=== PATIENT | female | born 1970 | race Caucasian/White ===

== ENCOUNTER 2023-09-19 14:33 | Emergency (ER) | payer OTHER ==
[2023-09-19 16:18] LABS: Absolute Lymphocytes (CBC) 1.4 K/uL (0.7-4.9); Hematocrit 43.5 % (36.0-45.0); Lymphocytes % 10.6 % (15.3-44.8); MCV 85.6 fL (80-100); MPV 8.6 fL (7.6-11.3); Platelets 294 thou/uL (152-406); RBC Red Blood Cell Count 5.08 M/uL (3.86-4.86)
[2023-09-19 16:26] LABS: Protime INR 1.03
[2023-09-19 16:40] LABS: ALT/SGPT 24 U/L (13-56); Albumin 4.2 g/dL (3.4-5.0); Alkaline Phosphatase 73 U/L (45-117); BUN Blood Urea Nitrogen 9 mg/dL (7-18); Bicarbonate 25 mEq/L (21-32); Bilirubin Total 0.6 mg/dL (0.2-1.0); Glomerular Filtration Rate 77 ml/min (=/>90); Glucose Level 130 mg/dL (74-106); NT PRO-BNP 165 pg/mL (<125); Protein, Total 8.4 g/dL (6.4-8.2); Sodium Level 138 mEq/L (136-145); Troponin High Sensitivity 9.5 pg/mL (<58.9)
[2023-09-19 17:09] LABS: AST/SGOT 18 U/L (15-37); Bilirubin Direct < 0.1 mg/dL (0-0.2); Bilirubin Indirect, Calculated ND mg/dL (0.2-0.8); Magnesium 2.3 mg/dL (1.6-2.4); Potassium 4.1 mEq/L (3.5-5.1)
--- NOTE | 2023-09-19 17:19 | RAD REPORT ---
EXAM DESCRIPTION: Nolan Single View09/19/2023 3:51 pm CLINICAL HISTORY: Chest pain COMPARISON: none FINDINGS: The lungs appear clear of acute infiltrate. The heart is normal size IMPRESSION: No acute abnormalities displayed
[2023-09-19] MEDS ORDERED: LORazepam 2 MG/ML VIAL ONE (17:29)
--- NOTE | 2023-09-19 17:30 | ER ---
Nurse's Notes [facility] Name: Henny Hubbard Age: 53 yrs Sex: Female : 1970 Arrival Date: 09/19/2023 Time: 14:33 Bed DX5 Private MD: Diagnosis: Anxiety, chest pain resolved Presentation: 09/19 15:28 Chief complaint: Patient states: That over the last 24hrs her anxiety has gotten worse. cm10 Pt states that she took her prescribed Ativan and has not had any relief. Coronavirus screen: Vaccine status: Patient reports being unvaccinated. Client denies travel out of the [place] in the last 14 days. Ebola Screen: Patient denies travel to an Ebola-affected area in the 21 days before illness onset. No symptoms or risks identified at this time. Initial Sepsis Screen: Does the patient meet any 2 criteria? No. Patient's initial sepsis screen is negative. Does the patient have a suspected source of infection? No. Patient's initial sepsis screen is negative. Risk Assessment: Do you want to hurt yourself or someone else? Patient reports no desire to harm self or others. Onset of symptoms was September 19, 2023. 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 - Social history:: Smoking status: Patient denies any tobacco usage or history of. Screenin:47 [facility] ED Fall Risk Assessment (Adult) Score/Fall Risk Level 0 - 2 = Low Risk ll1 Oriented to surroundings, Maintained a safe environment, Educated pt \T\ family on fall prevention, incl call for assistance when getting out of bed, Hourly rounding (assess needs \T\ fall precautionary measures) done. Abuse screen: Denies threats or abuse. Nutritional screening: No deficits noted. Tuberculosis screening: No symptoms or risk factors identified. Assessment: 17:25 General: Appears uncomfortable, Behavior is calm, cooperative, appropriate for age. ll1 General: Reports anxious. Pain: Denies pain. Cardiovascular: Reports chest pain, shortness of breath. Respiratory: Reports shortness of breath. 17:47 Reassessment: No changes from previously documented assessment. Patient and/or family ll1 updated on plan of care and expected duration. Pain level reassessed. Patient is alert, oriented x 3, equal unlabored respirations, skin warm/dry/pink. 17:48 Pain: Pain does not radiate. Pain began 2-3 days ago. ll1 Vital Signs: 15:28 BP 177 / 109; Pulse 97; Resp 18; Temp 97.5; Pulse Ox 100% on R/A; Weight 77.11 kg; cm10 Height 5 ft. 3 in. ; Pain 5/10; 17:46 BP 144 / 85; Pulse 81; Resp 16; Pulse Ox 97% on R/A; ll1 15:28 Body Mass Index 30.11 (77.11 kg, 160.02 cm) cm10 15:28 Pain Scale: Adult cm10 ED Course: 14:38 Patient arrived in ED. mg5 15:09 Cathryn Mejia MD is Attending Physician. sp3 15:30 Triage completed. cm10 15:31 Arm band placed on Patient placed in waiting room. cm10 15:39 EKG completed in triage. Results shown to MD. cm10 15:40 EKG done, by ED staff, reviewed by Cathryn Mejia MD. cm10 15:53 XRAY Chest (1 view) In Process Unspecified. EDMS 16:10 Basic Metabolic Panel Sent. bc6 16:10 CBC with Diff Sent. bc6 16:10 LFT's Sent. bc6 16:10 Magnesium Sent. bc6 16:10 NT PRO-BNP Sent. bc6 16:10 PT-INR Sent. bc6 16:10 Troponin HS Sent. bc6 16:10 Inserted saline lock: 20 gauge in left antecubital area, using aseptic technique. Blood bc6 collected. 17:47 No provider procedures requiring assistance completed. IV discontinued, intact, ll1 bleeding controlled, No redness/swelling at site. Pressure dressing applied. Patient maintains SpO2 saturation greater than 95% on room air. 17:48 Patient has correct armband on for positive identification. Bed in low position. Call ll1 light in reach. Provided Education on: n/a. Cardiac monitoring not applicable on this patient. Administered Medications: 17:25 Drug: Ativan IVP 2 mg IVP once {Note: RASS 0.} Route: IVP; Site: left antecubital; 1 17:55 Follow up: Response: No adverse reaction; Anxiety decreased; RASS: Alert and Calm (0) ll1 Medication: 17:48 VIS not applicable for this client. 1 Outcome: 17:29 Discharge ordered by . sp3 17:47 Discharged to home ambulatory, 1 17:47 Condition: stable 17:47 Discharge instructions given to patient, Instructed on discharge instructions, follow up and referral plans. medication usage, Demonstrated understanding of instructions, follow-up care, medications, Prescriptions given X 1, 17:55 Patient left the ED. 1 Signatures: Dispatcher [employer] Vimal Navarro RN RN ll1 Cathryn Mejia MD MD sp3 Bree Hamm 6 Eva William RN RN cm10 Rosa Rosa mg5 Corrections: (The following items were deleted from the chart) 15:39 15:30 Home Meds: Ativan 10 mg Oral for anxiety; cm10 cm10
--- NOTE | 2023-09-19 17:30 | EDPHYS ---
Physician Documentation [facility] Name: Henny Hubbard Age: 53 yrs Sex: Female : 1970 Arrival Date: 09/19/2023 Time: 14:33 Bed DX5 Private MD: ED Physician Cathryn Mejia HPI: 09/19 17:08 This 53 yrs old Female presents to ER via Wheelchair with complaints of Chest Pain, sp3 Breathing Difficulty, Anxiety. 17:08 53-year-old female with history of anxiety, hypertension presents to the ED with chief sp3 complaint anxiety not relieved by her standard anxiety medications which is Ativan 1 mg daily as needed. She states that yesterday she required 3 tablets for total of 3 mg and today she took 1 tab at 11 AM. She states that her chest pressure is secondary to her anxiety and she has been dealing with this "for 15 years". She denies any cardiac history, pain per se, left arm pain, neck pain, syncope, near syncope, shortness of breath, or any other signs or symptoms on ROS at this time or any other anginal equivalents objectively.. 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 - Social history:: Smoking status: Patient denies any tobacco usage or history of. ROS: 17:10 Constitutional: Negative for fever, chills, and weight loss, Eyes: Negative for injury, sp3 pain, redness, and discharge, ENT: Negative for injury, pain, and discharge, Neck: Negative for injury, pain, and swelling, Respiratory: Negative for shortness of breath, cough, wheezing, and pleuritic chest pain, Abdomen/GI: Negative for abdominal pain, nausea, vomiting, diarrhea, and constipation, Back: Negative for injury and pain, MS/Extremity: Negative for injury and deformity, Skin: Negative for injury, rash, and discoloration, Neuro: Negative for headache, weakness, numbness, tingling, and seizure, Allergy/Immunology: Negative for hives, rash, and allergies, Endocrine: Negative for neck swelling, polydipsia, polyuria, polyphagia, and marked weight changes, Hematologic/Lymphatic: Negative for swollen nodes, abnormal bleeding, and unusual bruising, 17:10 All other systems are negative, Exam: 17:10 Constitutional: This is a well developed, well nourished patient who is awake, alert, sp3 and in no acute distress. Head/Face: Normocephalic, atraumatic. Eyes: Pupils equal round and reactive to light, extra-ocular motions intact. Lids and lashes normal. Conjunctiva and sclera are non-icteric and not injected. Cornea within normal limits. Periorbital areas with no swelling, redness, or edema. ENT: Nares patent. No nasal discharge, no septal abnormalities noted. External auditory canals are clear. Oropharynx with no redness, swelling, or masses, exudates, or evidence of obstruction, uvula midline. Mucous membranes moist. Neck: Trachea midline, no thyromegaly or masses palpated, and no cervical lymphadenopathy. Supple, full range of motion without nuchal rigidity, or vertebral point tenderness. No Meningismus. Chest/axilla: Normal chest wall appearance and motion. Nontender with no deformity. No lesions are appreciated. Cardiovascular: Regular rate and rhythm with a normal S1 and S2. No gallops, murmurs, or rubs. Normal PMI, no JVD. No pulse deficits. Respiratory: Lungs have equal breath sounds bilaterally, clear to auscultation and percussion. No rales, rhonchi or wheezes noted. No increased work of breathing, no retractions or nasal flaring. Abdomen/GI: Soft, non-tender, with normal bowel sounds. No distension or tympany. No guarding or rebound. No evidence of tenderness throughout. Back: No spinal tenderness. No costovertebral tenderness. Full range of motion. Skin: Warm, dry with normal turgor. Normal color with no rashes, no lesions, and no evidence of cellulitis. MS/ Extremity: Pulses equal, no cyanosis. Neurovascular intact. Full, normal range of motion. Neuro: Awake and alert, GCS 15, oriented to person, place, time, and situation. Cranial nerves II-XII grossly intact. Motor strength 5/5 in all extremities. Sensory grossly intact. Cerebellar exam normal. Normal gait. 17:10 ECG was reviewed by the Attending Physician. EKG demonstrates normal sinus rhythm at 98 bpm with normal intervals except QTc at 480 ms, normal QRS, normal axis with poor R wave progression laterally and nonspecific diffuse ST/T changes without evidence of acute ischemia. Vital Signs: 15:28 BP 177 / 109; Pulse 97; Resp 18; Temp 97.5; Pulse Ox 100% on R/A; Weight 77.11 kg; cm10 Height 5 ft. 3 in. ; Pain 5/10; 17:46 BP 144 / 85; Pulse 81; Resp 16; Pulse Ox 97% on R/A; ll1 15:28 Body Mass Index 30.11 (77.11 kg, 160.02 cm) cm10 15:28 Pain Scale: Adult cm10 MDM: 15:37 Patient medically screened. 3 17:12 Data reviewed: vital signs, nurses notes, lab test result(s), EKG, radiologic studies. sp3 ED course: 53-year-old female with anxiety. I am not highly suspicious that this is cardiac in origin and very low clinical suspicion for acute coronary syndrome, PE, pneumonia, vascular pathology including aortic dissection and/or aneurysm, or any other critical process at this time. She denies any respiratory symptoms, fever, known sick contacts or travel history. Chest x-ray demonstrates no significant abnormality. EKG shows no ischemic changes. Lab work is pending and 2 mg of Ativan have been ordered for symptomatic control. If work-up is negative and she feels better, we will safely discharge her home after her Ativan.. 17:13 ED course: Laboratory values reviewed and troponin is negative. We will discharge her sp3 home after her anxiety medications.. 09/19 15:37 Order name: Basic Metabolic Panel; Complete Time: 17:13 sp3 09/19 15:37 Order name: CBC with Diff; Complete Time: 16:39 sp3 09/19 15:37 Order name: LFT's; Complete Time: 17:13 sp3 09/19 15:37 Order name: Magnesium; Complete Time: 17:13 sp3 09/19 15:37 Order name: NT PRO-BNP; Complete Time: 17:13 sp3 09/19 15:37 Order name: PT-INR; Complete Time: 16:39 3 09/19 15:37 Order name: Troponin HS; Complete Time: 17:13 sp3 09/19 15:37 Order name: XRAY Chest (1 view); Complete Time: 17:28 sp3 09/19 15:37 Order name: EKG; Complete Time: 15:37 sp3 09/19 15:37 Order name: EKG - Nurse/Tech; Complete Time: 15:39 sp3 09/19 15:37 Order name: IV Saline Lock; Complete Time: 16:10 sp3 09/19 15:37 Order name: Labs collected and sent; Complete Time: 16:10 sp3 Administered Medications: 17:25 Drug: Ativan IVP 2 mg IVP once {Note: RASS 0.} Route: IVP; Site: left antecubital; ll1 17:55 Follow up: Response: No adverse reaction; Anxiety decreased; RASS: Alert and Calm (0) ll1 Disposition Summary: 09/19/23 17:29 Discharge Ordered Notes: Location: Home sp3 Condition: Stable sp3 Diagnosis - Anxiety, chest pain resolved sp3 Followup: sp3 - With: Private Physician - When: Upon discharge from the Emergency Department - Reason: Continuance of care Discharge Instructions: - Discharge Summary Sheet sp3 - Generalized Anxiety Disorder, Adult sp3 - Managing Anxiety, Adult sp3 Forms: - Medication Reconciliation Form sp3 - Thank You Letter sp3 - Antibiotic Education sp3 - Prescription Opioid Use sp3 - Patient Portal Instructions sp3 - Leadership Thank You Letter sp3 Prescriptions: - ondansetron 8 mg Oral Tablet,disintegrating - take 1 tablet ORAL route every 12 hours; 20 tablet; Refills: 0, Product sp3 Selection Permitted Signatures: Dispatcher [employer] EDVimal Cotto RN RN 1 Cathryn Mejia MD MD sp3 Eva William RN RN cm10 Corrections: (The following items were deleted from the chart) 15:39 15:30 Home Meds: Ativan 10 mg Oral for anxiety; cm10 cm10
[2023-09-19 19:41] VITALS: TEMP 97.5
[2023-09-19 19:43] VITALS: BP 144/85; O2SAT 97
--- NOTE | 2023-09-22 16:55 | EKG ---
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
== END 2023-09-19 17:55 | disposition home or self-care (01) ==
LOC: ER 14:33
DX: F41.9 Anxiety disorder, unspecified (principal)
CPT/HCPCS: 36415; 71045; 80048; 80076; 83735; 83880; 84484; 85025; 85610; 93005; 96374; 99285